=== PATIENT | female | born 1940 | race Caucasian/White ===

== ENCOUNTER 2016-10-29 20:42 | Emergency (ER) | payer OTHER, MEDICARE ==
[~2016-10-29] VITALS: Ht 160 cm; Wt 71.2 kg
[~2016-10-29 20:42] MED LIST: ADULT LOW DOSE81 MG PO; CENTRUM SILVER1 EAC1 PO; CITRACAL + D C1 EACH PO; DIAZEPAM 2MG TAB2 MG PO; DYAZIDE 37.5-21 EACH PO; EVISTA PO; FISHOIL PO; MECLIZINE 25 MG25 M1 PO; OMEPRAZOLE20 MG PO; PROPANTHELINE B15 MG PO; PROPRANOLOL 8080 M1 PO; RECLAST 55 MG/100 M IV; TRIAMTERENE-HC1 EAC3 PO; VITAMIN D1000 UNI1 PO
[2016-10-29 21:18] LABS: ABSOLUTE NEUTROPHILS 4.3 thou/uL (1.4-8.2); BASOPHILS 0.6 % (0.0-2.0); EOSINOPHILS 2.5 % (0.0-3.0); HEMATOCRIT 41.7 % (37.0-47.0); HEMOGLOBIN 14.4 gm/dL (12.0-15.0); LYMPHOCYTES 36.3 % (24.0-44.0); MCH 34.5 pg (26.0-34.0); MCHC 34.5 g/dL (28.0-37.0); MCV 99.8 fL (80.0-100.0); MONOCYTES 6.6 % (1.0-8.0); PLATELET COUNT 183 thou/uL (150-400); RBC 4.18 mil/uL (4.20-5.00); RDW 13.3 % (10.5-14.5)
[2016-10-29 21:19] LABS: MANUAL DIFF NO
[2016-10-29 21:26] LABS: CALCIUM 8.8 mg/dL (8.5-10.1); CREATININE 0.9 mg/dL (0.6-1.0); POTASSIUM 3.6 mmol/L (3.5-5.1)
[2016-10-29 21:32] LABS: ALBUMIN 3.4 g/dL (3.4-5.0); TOTAL BILIRUBIN 0.7 mg/dL (<0.1-1.0); TOTAL PROTEIN 7.2 g/dL (6.4-8.2)
== END 2016-10-29 22:35 | disposition home or self-care (01) ==
LOC: ER 20:42
PROVIDERS: Physician Assistant
DX: S01.01XA Laceration without foreign body of scalp, initial encounter (principal); M81.0 Age-related osteoporosis without current pathological fracture; H81.09 Meniere's disease, unspecified ear; F10.99 Alcohol use, unspecified with unspecified alcohol-induced disorder; Z90.49 Acquired absence of other specified parts of digestive tract; Z88.5 Allergy status to narcotic agent; X58.XXXA Exposure to other specified factors, initial encounter; Y93.89 Activity, other specified; Y92.89 Other specified places as the place of occurrence of the external cause; Y99.8 Other external cause status